=== PATIENT | female | born 1990 | race Caucasian/White ===

== ENCOUNTER 2021-04-19 15:28 | Emergency (ER) | payer OTHER, SELFPAY ==
[~2021-04-19] VITALS: Ht 160 cm; Wt 56.4 kg
[2021-04-19 15:29] VITALS: BP 121/78
== END 2021-04-19 18:59 | disposition left against medical advice (07) ==
LOC: M ED 18:59
DX: Z53.21 Procedure and treatment not carried out due to patient leaving prior to being seen by health care provider (principal)